=== PATIENT | female | born 1965 | race Caucasian/White ===

== ENCOUNTER 2016-10-29 19:36 | Emergency (ER) | payer MEDICARE, MEDICAID ==
[2016-10-29] MEDS ORDERED: OPTIRAY 350 100 ML VIAL HMH IV ONE (19:37)
== END 2016-10-30 01:02 | disposition home or self-care (01) ==
LOC: ER 19:36
DX: R31.29 Other microscopic hematuria (principal); Z79.899 Other long term (current) drug therapy; Z79.82 Long term (current) use of aspirin; F17.210 Nicotine dependence, cigarettes, uncomplicated
CPT/HCPCS: 36415; 74177; 80053; 81001; 85025; 87088; 99284; Q9967